=== PATIENT | female | born 1980 | race African-American/Black ===

== ENCOUNTER → 2017-11-05 | Outpatient (CLI) | payer OTHER | END | disposition home or self-care (01) | LOC: US 08:55 | DX: O26.842 Uterine size-date discrepancy, second trimester (principal); Z3A.22 22 weeks gestation of pregnancy | CPT/HCPCS: 76805 ==

== ENCOUNTER → 2018-02-09 | Outpatient (CLI) | payer OTHER ==
--- NOTE | 2018-02-10 13:55 | KCIC ---
Obstetrical ultrasound HISTORY: Hypertension. Uterine size and date date discrepancy. COMPARISON: November 05, 2017. TECHNIQUE: Grayscale, color Doppler and spectral waveform analysis. FINDINGS: Single intrauterine fetus is identified. Placenta is located anterior. cardiac activity is documented with a heart rate of 149 bpm. Cervical length measures 3.9 cm. Amniotic fluid volume appears within normal limits with an amniotic fluid index of 11.1 cm. Anatomic survey is not performed. Biparietal diameter, head circumference, femur length and abdominal circumference are measured. Estimated sonographic age is 34 weeks 1 day with an estimated due date of 03/22/2018. Estimated age by LMP is 35 weeks 2 days. Estimated weight is 5 lbs. 5 oz. +/- 13 ounces. IMPRESSION: Single viable intrauterine with an estimated sonographic age of 34 weeks 1 day, compared with the clinical age of 35 weeks 2 days. Electronically signed by: Shubham Jay MD (02/10/2018 1:52 PM) [id number]
== END | disposition home or self-care (01) ==
LOC: KCIC US 12:16
PROVIDERS: ATTEND Obstetrics & Gynecology
DX: O26.843 Uterine size-date discrepancy, third trimester (principal); O16.3 Unspecified maternal hypertension, third trimester; Z3A.34 34 weeks gestation of pregnancy
CPT/HCPCS: 76805

== ENCOUNTER → 2019-02-04 | Outpatient (CLI) | payer OTHER ==
[2018-03-01 14:10] VITALS: BP 115/88
[~2019-02-04] MED LIST: GADOTERATE 7.5 MMOL/15ML VIAL. IVP ONE; IBUP800T19 PO; NIFE30TA17 PO
--- NOTE | 2019-02-04 13:07 | KCIC ---
Examination: MRCP WO/W CONTRAST History: Abdominal pain. Status post laparoscopic cholecystectomy 1 week ago. Comparison/Correlation: 08/06/2010 CT abdomen and pelvis without contrast Findings: Multiplanar, multisequence images of the upper abdomen were obtained prior to MRCP protocol. Postcontrast images were also obtained. MIP images provided. Very small right pleural effusion noted. Liver, spleen, pancreas, and adrenal glands are normal. Kidneys are unremarkable. No upper abdominal ascites. Cholecystectomy noted. No fluid collection at the gallbladder fossa. No enlarged upper abdominal lymph nodes. Common bile duct is of normal caliber. No stricture. No definite filling defect. No findings definite for a calculus. No evidence of pancreatic divisum. No intrahepatic biliary dilatation. Impression: Cholecystectomy. No suspicious collection. No biliary stricture. Electronically signed by: Jorge Camp MD (02/04/2019 1:04 PM) [facility]
== END | disposition home or self-care (01) ==
LOC: KCIC MRI 10:49
DX: J90 Pleural effusion, not elsewhere classified (principal); Z90.49 Acquired absence of other specified parts of digestive tract
CPT/HCPCS: 74182; A9575